=== PATIENT | female | born 1990 | race Caucasian/White ===

== ENCOUNTER 2016-04-28 00:50 | Emergency (ER) | payer OTHER ==
[~2016-04-28] VITALS: Ht 168.9 cm; Wt 98.2 kg
[~2016-04-28 00:50] MED LIST: Docusate Sodium PO; Ibuprofen PO; Oxycodone/Acetaminophen PO; PNV1TABL62 PO
[2016-04-28 00:52] VITALS: BP 126/77; PULSE 86; RESP 16; O2SAT 97
== END 2016-04-28 01:00 | disposition left against medical advice (07) ==
LOC: SED 00:50
DX: R10.9 Unspecified abdominal pain (principal); Z53.21 Procedure and treatment not carried out due to patient leaving prior to being seen by health care provider

== ENCOUNTER 2016-05-25 15:33 | Emergency (ER) | payer OTHER ==
[~2016-05-25] VITALS: Ht 167.6 cm; Wt 96.8 kg
[2016-05-25 15:37] VITALS: BP 135/86; PULSE 82; RESP 12; O2SAT 100
== END 2016-05-25 16:05 | disposition left against medical advice (07) ==
LOC: SED 15:33
DX: Z53.21 Procedure and treatment not carried out due to patient leaving prior to being seen by health care provider (principal)

== ENCOUNTER 2016-07-22 14:20 | Emergency (ER) | payer OTHER ==
[~2016-07-22] VITALS: Ht 170.2 cm; Wt 94.1 kg
[2016-07-22 14:25] VITALS: BP 129/78; PULSE 90; RESP 18; O2SAT 97
--- NOTE | 2016-07-22 15:51 | ED.REPORT ---
HPI-Abd Pain F Under 41 Date of Service Jul 22, 2016 ED Provider: Edilson,Ed History of Present Illness: 26-year-old female here for right upper quadrant and epigastric abdominal pain. She has had pain intermittently for months. It usually goes away after an hour or so. Today when she got the pain it lasted for quite a few hours. She was shaking and vomiting and shivering as the pain was so severe. This morning she had a couple coffee and a few bites of a [employer] sandwich prior to when the pain started. She has a gastric sleeve that was put in by [facility] [place]. She had a visit recently with the Center for this epigastric pain. She had ultrasound done on Friday. She was told she has gallstones and " some other condition" Nursing Notes Stated Complaint: SEVERE STOMACH CRAMPS Chief Complaint: Female Abdominal Pain Nursing Notes Reviewed: Yes Allergies: Coded Allergies: No Known Allergies (Verified Allergy, Unknown, 04/28/16) Scheduled ([Docusate Sodium]) 100 MG CAPSULE 100 MG PO BID Scheduled PRN ([Ibuprofen]) 800 MG TABLET 800 MG PO Q6H PRN PRN For Pain ([Oxycodone/Acetaminophen]) 1 TAB TABLET 1-2 TAB PO Q3H PRN PRN For Pain Miscellaneous Medications PNV WITH CA,NO.72/IRON,CARB/FA-Expunged Drug, ( PLUS IRON-Expunged Drug , Do Not Anibal) 1 Each Tablet 1 EACH PO General Time Seen by MD: 15:51 Chief Complaint Abdominal pain, Nausea, Vomiting moderate Hx Obtained From: Patient Arrived By: Walk-in Onset Occurred: Onset unknown Context of Onset: Eating Symptom Duration: Waxes and wanes Progression since Onset: Intermittent Location: : Epigastric: RUQ Quality: Same as prior Severity: Current: No pain currently Severity: Maximum: Severe Recent Healthcare: Recent doctor visit Similar Sx Previous: Yes Past Medical History Past Medical History Notes: Gastric sleeve Past Medical History Reports: Asthma Past Surgical History Ankle Gastric Sleeve placed 01/16/2016 Reports: Smoking History Never Smoker Social History Alcohol Use: "Social" Drug Use: Denies drug use Other Social History: Good social support, , Local resident Occupation lives with and baby and grandmother Ambulatory Status Independent Review of Systems Basic Review of Systems Eyes: Vision NL, No discharge ENT: Hearing NL, No pain, No nasal congestion, No pharyngeal pain Hematologic: No bleeding, No bruising Endocrine: No cold intolerance, No heat intolerance, No weight gain, No weight loss Skin: No bruising, No rash, No itch Allergy / Immune: No allergy Neurologic: NL mental status, No weakness, No numbness Psychiatric: Normal thought content Constitutional: Denies: Chills, Fatigue, Fever, Lethargy, Malaise, Recent wt loss, Weakness - generalized Respiratory: Denies: Dyspnea on exertion, Hemoptysis, Non-productive cough, Parox nocturnal dyspnea, Pleuritic pain, Prod cough, bloody, Prod cough, brown, Prod cough, clear, Prod cough, green, Prod cough, white, Prod cough, yellow, Shortness of breath, Wheezing Cardiovascular: Denies: Chest pain, Dyspnea on exertion, Edema, Orthopnea, Palpitations, Parox nocturnal dyspnea, Syncope GI: Reports: Abdominal pain, Anorexia, Constipation, Nausea, Vomiting Female: Denies: Dysuria, Flank pain, Hematuria, Incontinence, Nocturia, Pelvic pain, , Urinary frequency, Urinary urgency, Urination decreased, Urination increased, Vaginal bleeding - abnl, Vaginal discharge Musculoskeletal: Denies: Back pain Complete sys rev & neg: except as marked. Physical Exam Initial Vital Signs Vital Signs (First) Date Time Temp Pulse Resp B/P Pulse Ox O2 Delivery O2 Flow Rate FiO2 07/22/16 14:25 36.1 90 18 129/78 97 Room Air Initial VS: Reviewed, Vital signs normal Head / Eyes: Atraumatic, Normocephalic, PERRL ENT: Mucous membranes moist, Conjunctiva normal, No scleral icterus Neck: Supple, Non-tender, Full range of motion Lymphatic: No lymphadenopathy Skin: Warm, Dry, No cyanosis Neurologic: Alert, Oriented, Nonfocal Psychiatric: Mood/affect normal, Behavior normal, Normal thought content General/Constitutional: Awake, Alert, No acute distress, Well appearing Respiratory / Chest: Breath sounds NL, Breath sounds = bilat, No respiratory distress, No rales, No rhonchi, No wheezing Cardiovascular: Heart rate NL, Regular rhythm, Heart sounds NL, Peripheral circulation NL Abdomen: Atraumatic, Soft, No guarding, No rebound, BS normoactive mild RUQ/epigastric tenderness no cva tenderness Interpretation & Diagnostics Interpretation & Diagnostics: [facility] Diagnostic [place] [address] Patient Name: ANTONIA VELEZ MR#: [id number] [place] [facility] [place] Phys: Carlita Tracy Date of Service: 07/22/16 172 PROCEDURE: US ABDOMEN ([id number]) INDICATIONS: RUQ/epigastric pain TECHNIQUE: Real-time scanning was performed of the abdominal and retroperitoneal organs, with image documentation. COMPARISON: None. FINDINGS: Liver: Liver is normal in size and homogeneous in echotexture. Gallbladder: There are multiple small echogenic shadowing gallstones within the gallbladder. No gallbladder wall thickening or pericholecystic fluid. Biliary ducts: There is mild intrahepatic biliary ductal dilatation. Extrahepatic bile duct caliber measures 8-9 mm. Normal is 6-7 mm or less in diameter, or 10 mm or less post-cholecystectomy. Pancreas: Visualized portions of the pancreas are sonographically normal. Spleen: Spleen is normal in size and homogeneous in echotexture. Kidneys: Right kidney measures 10.7 cm long; left kidney measures 10.2 cm long. No hydronephrosis. Aorta: Visualized aorta is normal in caliber at less than 3 cm. Iliacs: Proximal common iliac arteries are normal in caliber at less than 2.5 cm. IVC: Intrahepatic inferior vena cava is patent. Miscellaneous: No free abdominal fluid. IMPRESSION: 1. Cholelithiasis without evidence of cholecystitis. 2. Mild biliary ductal dilatation suspicious for a small obstructing distal stone. Recommend correlation clinically including with laboratory values. Further evaluation may be obtained with MRCP if clinically indicated. Dictated by: Joe Boo M.D. on 07/22/2016 at 20:27 Approved by: Joe Boo M.D. on 07/22/2016 at 20:31 Lab Results Interpretation Result Diagram: 07/22/16 1618 07/22/16 1618 Test 07/22/16 16:18 07/22/16 17:10 07/22/16 18:32 White Blood Count 10.5th/mm3 (3.8-10.1) Red Blood Count 4.51mil/mm3 (3.90-5.20) Hemoglobin 12.3g/dL (12.0-15.6) Hematocrit 37.4% (35.0-46.0) Mean Corpuscular Volume 82.9fL (81-100) Mean Corpuscular Hemoglobin 27.3pg (27.0-35.0) Mean Corpuscular Hemoglobin Concent 32.9% (32.0-37.0) Red Cell Distribution Width 14.0% (12.3-15.4) Platelet Count 314bil/L (150-400) Neutrophils (%) (Auto) 75.9% (40-74) Lymphocytes (%) (Auto) 16.5% (14-46) Monocytes (%) (Auto) 7.3% (4-12) Eosinophils (%) (Auto) 0.1% (0-5) Basophils (%) (Auto) 0.1% (0-3) Sodium Level 141mEq/L (134-144) Potassium Level 4.2mEq/L (3.5-5.2) Chloride Level 105mEq/L (97-108) Carbon Dioxide Level 22mmol/L (18-29) Blood Urea Nitrogen 13mg/dL (6-20) Creatinine 0.74mg/dL (0.57-1.00) Estimat Glomerular Filtration Rate 137mL/min (>59) Glucose Level 90mg/dL (60-99) Calcium Level 9.7mg/dL (8.5-10.1) Magnesium Level 2.0mg/dL (1.6-2.6) Total Bilirubin 1.1mg/dL (0.0-1.2) Aspartate Amino Transf (AST/SGOT) 355U/L (0-50) Alanine Aminotransferase (ALT/SGPT) 160U/L (0-32) Alkaline Phosphatase 119U/L (25-150) Total Protein 7.5g/dL (6.4-8.4) Albumin 4.0g/dL (3.4-5.0) Lipase 12U/L (13-60) Hold [place] Top Tube Received (Received) Hold Urine Received (Received) Urine Color Dark yellow (YELLOW) Urine Appearance Clear (CLEAR,HAZY) Urine pH 6.5 (5.0-8.0) Urine Specific [place] 1.020 (1.003-1.035) Urine Protein 30mg/dL (NEG,TRACE) Urine Glucose (UA) Negativemg/dL (NEGATIVE) Urine Ketones 80mg/dL (NEGATIVE) Urine Occult Blood Negative (NEGATIVE) Urine Nitrite Negative (NEGATIVE) Urine Bilirubin Negative (NEGATIVE) Urine Urobilinogen 8.0mg/dL (NORMAL) Urine Leukocyte Esterase Negative (NEGATIVE) Urine RBC 0-2/hpf (0-2) Urine WBC 0-5/hpf (0-5) Urine Epithelial Cells Few/hpf (NONE-MOD) Urine Crystals None seen (NONE SEEN) Urine Bacteria Few/hpf (NONE-FEW) Urine Hyaline Casts None/lpf (NONE) Urine Granular Casts None seen (NONE SEEN) Urine Waxy Casts None seen (NONE SEEN) Urine Red Blood Cell Casts None seen (NONE SEEN) Urine White Blood Cell Casts None seen (NONE SEEN) Urine Mucus Present (None Seen) Urine Trichomonas None seen (NONE SEEN) Urine Yeast None (NONE SEEN) Urinalysis Comment None Re-Eval/Medical Decision Med Decision/Clinical Course Med Decision/Clinical Course: US from [facility] showed cholelithiasis. PT still operator brandy to palp upper abd. Pt not wanting US as she is going on vacation in the am. convinced pt to stay and get study done as labs are abnormal. 1939 Awaiting official US results. us tech called. suggested waiting longer. preliminary lead showed 8.4mm common bile duct dilation, and small gallstones. 2009- discussed with dr barksdale, will call GI. GI states they don't do ERCP. Hospitalist at [facility] consulted, unsure if pt needs procedure. pt wanting px meds, morphine ordered. 2144 dr medley will accept pt if our GI is on board. will consult again to see in the AM MRCP may be needed. consult our GI. 2114 - Dr Curly rainey does not think transfer is the best option for this pt. better to wait and reval with MRCP in AM. transfer not medically necessary. will consult our hospitalist.Dr barajas will admit. but GI not capable of procedure. repaged. will accept pt. to med surg floor. pt wanting to go to via private vehicle. needs BLS monitoring pt pain much improved. after multiple exams pt is stable, appears well, mild abd tenderness in RUQ. awaiting transport to signd out to Dr Barksdale at 2230 Discharge & Departure Shift Change Sign-Out Patient Care Transferred: Yes Laboratory Evaluation: Lab evaluation discussed Imaging Studies: Imaging discussed Procedures: Results discussed Response to Therapy: Improved Primary Impression: Common bile duct (CBD) obstruction Additional Impression: Common bile duct dilation Disposition: Transfer, Acute Care Facility Discharge Condition All VS Reviewed: Yes Condition: Stable Referrals: NOPCP (PCP) EDSupervising Provider for APC: Redd Barksdale MD copies to: Redd Barksdale MD, Linnea K [facility] Jul 22, 2016 15:51
[2016-07-22] MEDS ORDERED: 0.9% Sodium Chloride 1,000 ML IV ONE (15:53)
[2016-07-22 16:30] LABS: BASOPHILS % (AUTO) 0.1 % (0-3); EOSINOPHILS % (AUTO) 0.1 % (0-5); MONOCYTES % (AUTO) 7.3 % (4-12); Mean Corpuscular Hemoglobin 27.3 pg (27.0-35.0); Mean Corpuscular Volume 82.9 fL (81-100); NEUTROPHILS % (AUTO) 75.9 % (40-74); Platelet Count 314 bil/L (150-400)
[2016-07-22 18:50] VITALS: BP 121/84; PULSE 74; RESP 16; O2SAT 100
[2016-07-22 18:54] LABS: APPEARANCE,URINE CLEAR (CLEAR,HAZY); COLOR,URINE DARK YELLOW (YELLOW); PH,URINE 6.5 (5.0-8.0)
[2016-07-22 18:55] LABS: OCCULT BLOOD,URINE NEGATIVE (NEGATIVE)
--- NOTE | 2016-07-22 20:32 | DRSVH ---
PROCEDURE: US ABDOMEN ([id number]) INDICATIONS: RUQ/epigastric pain TECHNIQUE: Real-time scanning was performed of the abdominal and retroperitoneal organs, with image documentatio n. COMPARISON: None. FINDINGS: Liver: Liver is normal in size and homogeneous in echotexture. Gallbladder: There are multiple small echogenic shadowing gallstones within the gallbladder. No gall bladder wall thickening or pericholecystic fluid. Biliary ducts: There is mild intrahepatic biliary ductal dilatation. Extrahepatic bile duct caliber measures 8-9 mm. Normal is 6-7 mm or less in diameter, or 10 mm or less post-cholecystectomy. Pancreas: Visualized portions of the pancreas are sonographically normal. Spleen: Spleen is normal in size and homogeneous in echotexture. Kidneys: Right kidney measures 10.7 cm long; left kidney measures 10.2 cm long. No hydronephrosis. Aorta: Visualized aorta is normal in caliber at less than 3 cm. Iliacs: Proximal common iliac arteries are normal in caliber at less than 2.5 cm. IVC: Intrahepatic inferior vena cava is patent. Miscellaneous: No free abdominal fluid. IMPRESSION: 1. Cholelithiasis without evidence of cholecystitis. 2. Mild biliary ductal dilatation suspicious for a small obstructing distal stone. Recommend correl ation clinically including with laboratory values. Further evaluation may be obtained with MRCP if cl inically indicated. Dictated by: Joe Boo M.D. on 07/22/2016 at 20:27 Approved by: Joe Boo M.D. on 07/22/2016 at 20:31
[2016-07-22 21:22] VITALS: BP 137/83; PULSE 64; RESP 20; O2SAT 100
[2016-07-22] MEDS ORDERED: Alum-Mag Hydrox-Simeth 30 mL Suspension PO PRN (21:50)
[2016-07-22] MEDS ORDERED: Polyethylene Glycol (PEG) 17 Gm Powder PO PRN (21:50)
[2016-07-22] MEDS ORDERED: Ondansetron 2 mg/mL 2 mL Inj IVPUSH PRN (21:50)
[2016-07-22] MEDS ORDERED: Ondansetron 2 mg/mL 2 mL Inj IVPUSH ONE (22:05)
[2016-07-22 23:03] VITALS: BP 128/85; PULSE 65; RESP 20; O2SAT 97
== END 2016-07-22 23:07 | disposition short-term general hospital (02) ==
LOC: SED 14:20
DX: K83.1 Obstruction of bile duct (principal); K83.8 Other specified diseases of biliary tract; J45.909 Unspecified asthma, uncomplicated
CPT/HCPCS: 76700; 80053; 81001; 81025; 83690; 83735; 85025; 96361; 96374; 96375; 99285; J2270; J2405; J7030